=== PATIENT | female | born 1955 | race African-American/Black ===

== ENCOUNTER 2022-09-23 01:52 | Emergency (ER) | payer OTHER ==
[~2022-09-23] VITALS: Ht 162.6 cm; Wt 111.0 kg
[2022-09-23 01:54] VITALS: BP 161/74; PULSE 94; RESP 16; TEMP 98.4; O2SAT 94
[2022-09-23 03:11] LABS: BASOPHILS % 0.5 % (0.0-2.0); HEMATOCRIT. 42.2 % (36.0-48.0); LYMPHOCYTES % 24.5 % (20.0-50.0); MEAN CORPUSCULAR HEMOGLOBIN 25.2 pg (28.0-32.0); MEAN CORPUSCULAR VOLUME 75.9 fL (81.0-99.0); MONOCYTES % 9.8 % (2.0-8.0); NEUTROPHILS % 64.2 % (40.0-76.0); RED BLOOD CELL COUNT 5.56 mill/uL (4.2-5.4)
[2022-09-23 03:19] LABS: CHLORIDE 102 mEq/L (98-107)
[2022-09-23] MEDS ORDERED: ACETAMINOPHEN 325MG TABLET PO NR (04:25)
[2022-09-23 05:32] LABS: CLARITY URINE CLEAR (CLEAR); COLOR URINE YELLOW (YELLOW); KETONES URINE NEGATIVE (NEGATIVE); LEUKOCYTE ESTERASE URINE NEGATIVE (NEGATIVE); NITRITE URINE NEGATIVE (NEGATIVE); OCCULT BLOOD URINE NEGATIVE (NEGATIVE); PH URINE 5.5 (4.5-8.0); PROTEIN URINE 1+ (NEGATIVE); UROBILINOGEN URINE 0.2 E.U./dL (0.2-1.0)
[2022-09-23 05:48] LABS: MEAN PLATELET VOLUME 8.8 fl (7.4-10.4); PLATELET 178 x1000/uL (130-400)
[2022-09-23] MEDS ORDERED: CYCL5TAB PO (07:09)
[2022-09-23] MEDS ORDERED: NAPR-681 PO (07:09)
== END 2022-09-23 07:21 | disposition home or self-care (01) ==
LOC: ER 01:52
DX: R25.2 Cramp and spasm (principal); E11.9 Type 2 diabetes mellitus without complications; I10 Essential (primary) hypertension; Z86.59 Personal history of other mental and behavioral disorders; Z88.6 Allergy status to analgesic agent
CPT/HCPCS: 36415; 71045; 80053; 81003; 83880; 85025; 93005; 93970; 99285